=== PATIENT | male | born 1995 | race Two or more races ===

== ENCOUNTER 2019-08-23 06:13 | Emergency (ER) | payer MEDICAID, OTHER ==
[~2019-08-23] VITALS: Ht 177.8 cm; Wt 62.6 kg
[2019-08-23 06:20] VITALS: BP 113/72
[2019-08-23] MEDS ORDERED: IBUPROFEN 800 MG TAB PO ONE (07:45)
== END 2019-08-23 08:08 | disposition home or self-care (01) ==
LOC: ER 06:13
DX: S01.112A Laceration without foreign body of left eyelid and periocular area, initial encounter (principal); V43.52XA Car driver injured in collision with other type car in traffic accident, initial encounter; Y93.89 Activity, other specified; Y92.488 Other paved roadways as the place of occurrence of the external cause; Y99.8 Other external cause status
CPT/HCPCS: 12011; 70450; 72125